=== PATIENT | female | born 2005 | race Two or more races ===

== ENCOUNTER 2024-11-22 09:22 | Emergency (ER) | payer OTHER ==
[~2024-11-22] VITALS: Ht 160 cm; Wt 61.2 kg
[2024-11-22] MEDS ORDERED: HYDROGEN PEROXIDE 473 ML BOTTLE TOP ONE (10:29)
[2024-11-22] MEDS ORDERED: NEOMYCIN/BACITRACIN/POLYMYXINB 28.35 GM OINT..GM. TOP STA (10:45)
[2024-11-22] MEDS ORDERED: NEOMYCIN/POLYMYXIN B/HYDROCORT 20 DR/ML BOTTLE OT ONE (10:49)
== END 2024-11-22 13:25 | disposition home or self-care (01) ==
LOC: EMR PED 09:22 → ER 09:22 → EMR PED 10:11
DX: S01.312A Laceration without foreign body of left ear, initial encounter (principal); W45.8XXA Other foreign body or object entering through skin, initial encounter; Y93.89 Activity, other specified; Y92.89 Other specified places as the place of occurrence of the external cause; Y99.9 Unspecified external cause status